=== PATIENT | female | born 1960 | race Asian ===

== ENCOUNTER → 2023-05-12 07:17 | Outpatient (REF) | payer OTHER, SELFPAY | LOC: HWRAD 07:17 | PROVIDERS: ATTENDING PHYSICIAN Family Medicine; FAMILY PHYSICIAN Family Medicine | DX: R59.0 Localized enlarged lymph nodes (principal) | CPT/HCPCS: 76536 ==

== ENCOUNTER → 2023-05-23 09:13 | Outpatient (REF) | payer OTHER, SELFPAY | LOC: RCS 09:13 | PROVIDERS: ATTENDING PHYSICIAN Nuclear Medicine Nuclear Cardiology; FAMILY PHYSICIAN Family Medicine | DX: I10 Essential (primary) hypertension (principal) | CPT/HCPCS: 93017 ==

== ENCOUNTER → 2023-08-11 06:42 | Outpatient (REF) | payer OTHER, SELFPAY | LOC: PAVMRI 06:42 | PROVIDERS: ATTENDING PHYSICIAN Specialist; FAMILY PHYSICIAN Family Medicine | DX: M25.512 Pain in left shoulder (principal); R20.2 Paresthesia of skin; M54.12 Radiculopathy, cervical region | CPT/HCPCS: 72141 ==

== ENCOUNTER → 2023-08-11 06:46 | Outpatient (REF) | payer OTHER, SELFPAY | LOC: PAVMRI 06:46 | PROVIDERS: ATTENDING PHYSICIAN Specialist; FAMILY PHYSICIAN Family Medicine | DX: M25.512 Pain in left shoulder (principal) | CPT/HCPCS: 73221 ==

== ENCOUNTER 2024-06-25 20:33 | Emergency (ER) | payer OTHER, SELFPAY ==
[2024-06-25 20:43] VITALS: BP 148/89
--- NOTE | 2024-06-25 22:02 | ED.GENMED ---
History of Present Illness
General
Chief Complaint: Cough
Source: patient
Exam Limitations: none
Time Seen by Provider: 06/25/24 21:39
Nursing documentation reviewed up to this point in time: agreed with
History of Present Illness
History of Present Illness:
Patient presents to ED secondary to worsening cough, shortness of breath, difficulty sleeping due to cough, and decreased appetite over the past 1 month. Patient was seen by her PCP 2 weeks ago and was given medication for cough, with diagnosis of
potential seasonal allergies. Since then, patient states her symptoms have worsened. Patient does have a follow-up appointment with her PCP tomorrow morning. Denies vomiting or diarrhea. Denies fever but reports chills sensation. Denies
headache. Denies sore throat. Denies back pain. Denies recent travel. Denies recent surgery. Patient states that her daughter had flu 2 months ago.
Past History
Past History
ED Past Medical History: HTN, Hypercholesterolemia, NIDDM and Other (Osteoarthritis, diverticulitis June 2022)
ED Past Surgical History: Gynecological and Orthopedic
Social History
Tobacco: Non-smoker
Alcohol: None
Drug: None
Personal:
Living: with family
Employment: Not employed
Family History
Family History: Other (Noncontributory)
Review of Systems
Review of Systems
Allergies reviewed?: Yes
All Other Systems: ROS reviewed and negative except as documented in HPI and ROS
Constitutional: Reports chills; Denies fever
EENT: Reports no symptoms
Respiratory: Reports cough and trouble breathing
ABD/GI: Reports no symptoms; Denies abdominal pain, vomiting or diarrhea
Musculoskeletal: Reports muscle pain
Skin: Reports no symptoms
Neurological: Reports weakness
Phy Exam
Physical Exam
Physical Exam:
Physical Exam
General: mild distress, not acutely ill. afebrile
Head: nc/at. eomi
Neck: supple. normal range motion.
Heart: s1/s2 regular rate and rhythm, no murmur.
Lungs: mild respiratory distress. diminished breath sounds bilaterally
Abdomen: normal bowel sounds. not tender.
Neuro: alert and oriented x 3. no focal neurological deficits
Skin: no rash
Psychiatric: well kept. interactive and cooperative
Extremities: no edema. no calf tenderness
Course
Orders/Labs/Results
Orders:
Orders
06/25/24 20:47
CR Chest - 2 Views Urgent
Comment:
Reason For Exam: Cough, shortness of breath
06/25/24 21:49
Dexamethasone Sod Phosphate [Decadron] 10 mg IV NOW STA
Guaifenesin/Codeine Solution [Robitussin AC] 10 ml PO NOW STA
Ipratropium/Albuterol Sulfate [Duoneb] 3 ml INH R NOW STA
Ketorolac [Toradol] 15 mg IV NOW STA
06/25/24 21:50
0.9% Sodium Chloride 500 ml [Nss] 500 ml IV BOLUS
06/25/24 22:13
Basic Metabolic Panel Urgent
COVID-19 Antigen Urgent
Source: Nasal Swab
Complete Blood Count/With Diff Urgent
Magnesium Urgent
Urinalysis Reflex To Culture Urgent
Date Specimen was Collected: 06/25/24
Time Specimen was Collected: 22:02
Urine Microscopic Reflex Cult Urgent
Influenza A+B Rapid Molecular Urgent
BELA Source: Nasal Swab
Specimen Description:
Urine Culture Urgent
BELA Source: U
Specimen Description:
Date Specimen was Collected: 06/25/24
Time Specimen was Collected: 22:02
06/25/24 23:49
Azithromycin [Zithromax] 500 mg PO NOW STA
Benzonatate [Tessalon Perles] 100 mg PO NOW STA
Abnormal Lab Results
06/25/24
22:13
Absolute Lymphs (auto) 1.0 L 10^3/uL
(1.2-3.4)
Monocytes % 12.8 H %
(1.7-9.3)
Eosinophils % 8.8 H %
(0-6)
Chloride 110 H mmol/L
(98-107)
Glucose 101 H mg/dl
(70-99)
Ur Occult Blood Reflex 1+ A
(Negative)
Leukocyte Esterase Rfl 1+ A
(Negative)
Urine RBC 3-6 A /HPF
(0-2)
Urine Bacteria (Reflex) Few A
(Negative)
06/25/24 22:13
06/25/24 22:13
Vital Signs
Initial and Last Documented VS:
Initial Vital Signs
Temp Pulse Resp BP Pulse Ox
99.4 F 97 16 148/89 97
06/25/24 20:43 06/25/24 20:43 06/25/24 20:43 06/25/24 20:43 06/25/24 20:43
Last Documented Vital Signs
Temp Pulse Resp BP Pulse Ox
97.8 F 92 18 126/83 97
06/26/24 00:10 06/26/24 00:10 06/26/24 00:10 06/26/24 00:10 06/26/24 00:10
MDM/Problems Addressed
MDM/Problems Addressed:
Patient with unremarkable workup in ED, including blood work, nasal swab, and chest x-ray. Patient otherwise remains afebrile, hemodynamically stable, and without acute respiratory distress. History and exam consistent with likely ongoing upper
respiratory infection versus early pneumonia versus acute bronchitis. After discussion, decision made to treat patient symptomatically via Z-William, prednisone, inhaler, along with antitussive medication. Patient will follow-up with her primary care
physician for reevaluation. Patient expresses understanding and agrees with treatment plan, at time of discharge, to the care of her spouse.
*Critical Care Note
Total Time (30-74mins, 75-104mins- exclusive of procedures): Not Applicable
ED Attending Note
-
Portions of this chart may have been created with voice recognition software.� Occasional wrong word or��sound alike� substitutions may have occurred due to the inherent limitations of voice recognition software.
Discharge Plan
Departure
Patient Disposition: Home (Routine Discharge)
Date of Disposition: 06/25/24
Time of Disposition: 23:53
Patient with high blood pressure during this ER visit?: Yes
Condition: Good
Discharge Problem:
Acute bronchitis
Instructions: Acute Bronchitis, Adult (DC)
Prescriptions:
New
azithromycin [Zithromax] 250 mg tablet
250 mg PO DAILY 4 Days Qty: 4 0RF
benzonatate 100 mg capsule
100 mg PO TID PRN (Reason: Cough) Qty: 20 0RF
albuterol sulfate [Ventolin HFA] 90 mcg/actuation HFA aerosol inhaler
2 puff inhalation Q6H PRN (Reason: shortness of breath or wheezing) Qty: 6.7 0RF
prednisone 50 mg tablet
50 mg PO DAILY Qty: 3 0RF
No Action
metformin 500 mg Tablet
500 mg PO BID
ascorbic acid (vitamin C) [Vitamin C] 1,000 mg Tablet
1,000 mg PO DAILY
atorvastatin 20 mg Tablet
20 mg PO DAILY
omega 8-bby-ppi-fish oil [Fish Oil] 1,000 mg (120 mg-180 mg) Capsule
1 cap PO DAILY
calcium carbonate-vitamin D3 [Caltrate with Vitamin D3] 600 mg-20 mcg (800 unit) Tablet
1 tab PO DAILY
melatonin 10 mg Tablet
10 mg PO HS PRN (Reason: insomnia)
multivitamin Tablet
1 tab PO DAILY
loratadine [Claritin] 10 mg Tablet
10 mg PO DAILY
docusate sodium [Colace] 100 mg capsule
100 mg PO BID Qty: 30 0RF
senna 8.6 mg capsule
17.2 mg PO BID Qty: 30 0RF
losartan 50 mg Tablet
50 mg PO DAILY Qty: 1 0RF
Rx Instructions:
HOLD if systolic blood pressure <130 while on Oxycodone.
amoxicillin-pot clavulanate 875-125 mg tablet
1 tab PO BID Qty: 20 0RF
Paxlovid 300 mg (150 mg x 2)-100 mg tablets,dose pack
See Rx Instructions .ROUTE .COMPLEX Qty: 30 0RF
Rx Instructions:
take TWO 150 mg tablets of nirmatrelvir with ONE 100 mg tablet of ritonavir twice daily for 5 days
Referrals:
Halie Norris, DO [Family Provider] -
Activity Restrictions/Additional Instructions:
As discussed, please follow-up with your primary care physician for reevaluation. Your prescriptions have been sent electronically to [facility] in [place]. Please consider returning to ED with worsening symptoms.
Interventions
Interventions:
*Risk Screen - Suicide Last Done: 06/25/24 22:17
*General Assessment Last Done: 06/25/24 22:17
*Neglect/Abuse Screening Last Done: 06/25/24 22:17
*ED- Fall Risk Assessment Last Done: 06/25/24 22:17
*ED COVID-19 Vaccine History Last Done: 06/25/24 22:17
*Nursing Disposition Last Done: 06/26/24 00:10
ED- Pulmonary Assessment Last Done: 06/25/24 22:31
Discharge Date and Time
Discharge Date/Time: 06/26/24 00:13
Print Language: BRITISH
[2024-06-25] MEDS: TORADOL 15 MG IV (22:14)
[2024-06-25] MEDS: DUONEB 3 ML INH (22:14)
[2024-06-25] MEDS: ROBITUSSIN AC 10 ML PO (22:14)
[2024-06-25] MEDS: DECADRON 10 MG IV (22:14)
[2024-06-25] MEDS: NSS 500 IV (22:16)
[2024-06-25 22:32] VITALS: BP 128/90
[2024-06-25 22:38] LABS: % Basophils 0.6 % (0-2); % Eosinophils 8.8 % (0-6); % Immature Granulocytes 0.4 % (0-0.5); % Lymphocytes 20.6 % (20.5-51.1); % Monocytes 12.8 % (1.7-9.3); % Neutrophils 56.8 % (42.2-75.2); Absolute Eosinophils 0.4 10^3/uL (0-0.7); Absolute Monocytes 0.6 10^3/uL (0.1-0.6); Absolute Neutrophils 2.8 10^3/uL (1.4-6.5); Hematocrit 38.5 % (37.0-47.0); Hemoglobin 13.2 g/dL (12.0-16.0); Mean Corp Hgb Conc. 34.3 g/dL (33.0-37.0); Mean Corpuscular Hgb 29.6 pg (27.0-31.0); Mean Corpuscular Volume 86.3 fL (81.0-99.0); Nucleated Red Blood Cells % 0 %; Platelet Count 145 10^3/uL (130-400); Red Blood Cell Count 4.46 10^6/uL (4.20-5.40); Red Cell Dist. Width 12.3 % (11.5-14.5); Urine Albumin Negative (Neg - Trace); Urine Bilirubin Negative (Negative); Urine Character Clear (Clear); Urine Color Yellow; Urine Glucose Negative (Negative); Urine Ketone Negative (Negative); Urine Leukocyte 1+ (Negative); Urine Nitrite Negative (Negative); Urine Occult Blood 1+ (Negative); Urine Urobilinogen Negative (Neg - 1+)
[2024-06-25 22:44] LABS: Urine Mucus Few
[2024-06-25 22:45] LABS: Urine Bacteria Few (Negative); Urine White Cell 0-2 /HPF (0-5)
[2024-06-25 22:52] LABS: Blood Urea Nitrogen 13 mg/dl (7-17); Calcium 9.4 mg/dl (8.4-10.2); Carbon Dioxide 25 mmol/L (22-30); Chloride 110 mmol/L (98-107); Glucose 101 mg/dl (70-99); Magnesium 2.1 mg/dl (1.6-2.3); Potassium 4.5 mmol/L (3.5-5.1); Sodium 143 mmol/L (135-145); eGFR > 60.00
[2024-06-25 23:03] LABS: COVID-19 Antigen Negative (Negative)
[2024-06-25] MEDS: ZITHROMAX 500 MG PO (23:56)
[2024-06-25] MEDS: TESSALON PERLES 100 MG PO (23:57)
[2024-06-26 00:10] VITALS: BP 126/83
== END 2024-06-26 00:13 | disposition home or self-care (01) ==
LOC: EMR 20:33
PROVIDERS: EMERGENCY PHYSICIAN Emergency Medicine; FAMILY PHYSICIAN Family Medicine
DX: J20.9 Acute bronchitis, unspecified (principal); I10 Essential (primary) hypertension
CPT/HCPCS: 99284; 96374; 96375; 96361; 94640; 71046; 80048; 81003; 81015; 83735; 85025; 87086; 87502; 87811

== ENCOUNTER 2024-08-16 13:06 | Emergency (ER) | payer OTHER, SELFPAY ==
[2024-08-16 13:10] VITALS: BP 141/91
--- NOTE | 2024-08-16 15:30 | ED.GENMED ---
History of Present Illness
General
Chief Complaint: Back Pain
Time Seen by Provider: 08/16/24 14:50
History of Present Illness
History of Present Illness:
64-year-old female presents the emergency department for evaluation of right-sided low back pain radiating down the right leg for the past 2 weeks but worsening today. She is having difficulty walking secondary to pain. Saw her primary care
physician this morning for the symptoms but did not feel that the pain was bad enough to discuss however it worsened later in the day prompting her to come to the ER. Took Advil today without relief. Denies any loss of bladder or bowel function
Past History
Past History
ED Past Medical History: HTN, Hypercholesterolemia, NIDDM and Other (Osteoarthritis, diverticulitis June 2022)
ED Past Surgical History: Gynecological and Orthopedic
Social History
Tobacco: Non-smoker
Alcohol: None
Drug: None
Personal:
Living: with family
Employment: Not employed
Family History
Family History: Other (Noncontributory)
Review of Systems
Review of Systems
Allergies reviewed?: Yes
All Other Systems: ROS reviewed and negative except as documented in HPI and ROS
Phy Exam
Physical Exam
Physical Exam:
GEN: Well appearing, NAD, WDWN
HEENT: Oral mucosa moist, no scleral icterus
Cardiac: Regular rate
Lung: No respiratory distress, no tachypnea
MSK: No gross deformity or injuries. Tenderness elicited to the right paraspinous lumbar musculature, right hip internal and external rotation elicits pain as well, positive straight leg raise on the right at 45 degrees. Normal sensation to the
lower extremities bilaterally. Patellar reflexes 2+ bilaterally
Skin: Good color, no pallor or jaundice, no rashes
Neuro: AO x3, moves all extremities freely
Psych: Calm, cooperative
Course
Orders/Labs/Results
Orders:
Orders
08/16/24 15:28
Cyclobenzaprine HCl [Flexeril] 10 mg PO NOW STA
Ketorolac [Toradol] 30 mg IM NOW STA
Vital Signs
Initial and Last Documented VS:
Initial Vital Signs
Temp Pulse Resp BP Pulse Ox
98.4 F 98 16 141/91 99
08/16/24 13:10 08/16/24 13:10 08/16/24 13:10 08/16/24 13:10 08/16/24 13:10
Last Documented Vital Signs
Temp Pulse Resp BP Pulse Ox
98.4 F 98 16 141/91 99
08/16/24 13:10 08/16/24 13:10 08/16/24 13:10 08/16/24 13:10 08/16/24 13:10
MDM/Problems Addressed
MDM/Problems Addressed:
Lumbar radiculopathy most likely from discogenic disease or foraminal stenosis, she has not been taking medications to control this thus we will put her on a regimen of NSAIDs and recommend outpatient PT as well as primary care follow-up
*Critical Care Note
Total Time (30-74mins, 75-104mins- exclusive of procedures): Not Applicable
ED Attending Note
-
Portions of this chart may have been created with voice recognition software.� Occasional wrong word or��sound alike� substitutions may have occurred due to the inherent limitations of voice recognition software.
Discharge Plan
Departure
Patient Disposition: Home (Routine Discharge)
Date of Disposition: 08/16/24
Time of Disposition: 15:34
Patient with high blood pressure during this ER visit?: No
Discharge Problem:
Acute lumbar radiculopathy
Instructions: Radiculopathy (DC)
Prescriptions:
New
meloxicam 15 mg tablet
15 mg PO DAILY Qty: 14 0RF
methocarbamol 750 mg tablet
750 mg PO Q8H PRN (Reason: pain) Qty: 20 0RF
No Action
metformin 500 mg Tablet
500 mg PO BID
ascorbic acid (vitamin C) [Vitamin C] 1,000 mg Tablet
1,000 mg PO DAILY
atorvastatin 20 mg Tablet
20 mg PO DAILY
omega 0-snc-red-fish oil [Fish Oil] 1,000 mg (120 mg-180 mg) Capsule
1 cap PO DAILY
calcium carbonate-vitamin D3 [Caltrate with Vitamin D3] 600 mg-20 mcg (800 unit) Tablet
1 tab PO DAILY
melatonin 10 mg Tablet
10 mg PO HS PRN (Reason: insomnia)
multivitamin Tablet
1 tab PO DAILY
loratadine [Claritin] 10 mg Tablet
10 mg PO DAILY
docusate sodium [Colace] 100 mg capsule
100 mg PO BID Qty: 30 0RF
senna 8.6 mg capsule
17.2 mg PO BID Qty: 30 0RF
losartan 50 mg Tablet
50 mg PO DAILY Qty: 1 0RF
Rx Instructions:
HOLD if systolic blood pressure <130 while on Oxycodone.
amoxicillin-pot clavulanate 875-125 mg tablet
1 tab PO BID Qty: 20 0RF
Paxlovid 300 mg (150 mg x 2)-100 mg tablets,dose pack
See Rx Instructions .ROUTE .COMPLEX Qty: 30 0RF
Rx Instructions:
take TWO 150 mg tablets of nirmatrelvir with ONE 100 mg tablet of ritonavir twice daily for 5 days
azithromycin [Zithromax] 250 mg tablet
250 mg PO DAILY 4 Days Qty: 4 0RF
benzonatate 100 mg capsule
100 mg PO TID PRN (Reason: Cough) Qty: 20 0RF
albuterol sulfate [Ventolin HFA] 90 mcg/actuation HFA aerosol inhaler
2 puff inhalation Q6H PRN (Reason: shortness of breath or wheezing) Qty: 6.7 0RF
prednisone 50 mg tablet
50 mg PO DAILY Qty: 3 0RF
Referrals:
Halie Norris DO [Family Provider, Family Practice]
Activity Restrictions/Additional Instructions:
Discuss an MRI with your primary care physician
Schedule physical therapy as we discussed
Interventions
Interventions:
*Risk Screen - Suicide Last Done: 08/16/24 13:11
*General Assessment Last Done: 08/16/24 16:04
*Neglect/Abuse Screening Last Done: 08/16/24 13:11
*ED- Fall Risk Assessment Last Done: 08/16/24 16:04
*ED COVID-19 Vaccine History Last Done: 08/16/24 16:04
*Nursing Disposition Last Done: 08/16/24 16:07
ED-Musculoskeletal Assessment Last Done: 08/16/24 16:04
Discharge Date and Time
Discharge Date/Time: 08/16/24 16:15
Print Language: NORWEGIAN
[2024-08-16] MEDS: TORADOL 30 MG IM (15:43)
[2024-08-16] MEDS: FLEXERIL 10 MG PO (15:43)
== END 2024-08-16 16:15 | disposition home or self-care (01) ==
LOC: EMR 13:06
PROVIDERS: EMERGENCY PHYSICIAN Emergency Medicine; FAMILY PHYSICIAN Family Medicine
DX: M54.16 Radiculopathy, lumbar region (principal); I10 Essential (primary) hypertension; E78.00 Pure hypercholesterolemia, unspecified; E11.9 Type 2 diabetes mellitus without complications; M19.90 Unspecified osteoarthritis, unspecified site
CPT/HCPCS: 99282; 96372